=== PATIENT | male | born 1980 | race Caucasian/White ===

== ENCOUNTER 2020-07-19 14:53 | Emergency (ER) | payer SELFPAY ==
[2020-07-19 15:05] VITALS: BP 134/85; PULSE 84; RESP 18; TEMP 36.2; O2SAT 100; BMI 22.4
--- NOTE | 2020-07-19 16:36 | W.ED.GENADLT ---
HPI - General Adult General: Chief complaint: General Medical Stated complaint: opiod withdrawl Time Seen by Provider: 07/19/20 16:29 Source: patient Mode of arrival: ambulatory Limitations: no limitations History of Present Illness: HPI narrative: 39-year-old male states he uses Percocets and states he gets some on the streets and family this morning. He is want to stop taking them and is scared he may go into withdrawals. He has no withdrawal symptoms here but states he does feel anxious. He has had no vomiting. He has no suicidal or homicidal ideations. Associated symptoms: Deny chest pain, dyspnea, headache(s), nausea, rash or vomiting Review of Systems Const: Denies: fever(s), chills, body aches or change in appetite Eyes: Denies: blurry vision or eye discomfort ENMT: Denies: throat pain or dental pain Card: Denies: chest pain Resp: Denies: dyspnea GI: Denies: abdominal pain, nausea, vomiting or diarrhea : Denies: dysuria Musc: Denies: neck pain or back pain Skin/Breast: Denies: rash Neuro: Denies: headache(s) Psych: Denies: depression Tyrone/Lymph: Denies: easy bruising All/Imm: Denies: urticaria Physical Exam Const: COMMON NORMALS: no acute distress, patient oriented x3 and healthy appearing HENMT: COMMON NORMALS: normocephalic and atraumatic HEAD & SCALP: normocephalic and atraumatic Eye: COMMON NORMALS: Equal, round and reactive pupils present and EOMs intact bilaterally PUPIL: Yes Equal, round and reactive pupils present Neck/C-Spine: COMMON NORMALS: full ROM and supple Chest: COMMONS NORMALS: normal inspection of the chest and normal palpation of entire chest wall Resp: COMMON NORMALS: normal respiratory effort, No retractions, No use of accessory muscles and clear to auscultation bilaterally AUSCULTATION: clear to auscultation bilaterally Cardio: COMMON NORMALS: regular rate, regular rhythm and No murmurs present (Cardio) RATE: regular rate RHYTHM: regular rhythm GI: COMMON NORMALS: Normal to inspection, nondistended, normoactive bowel sounds present, Soft to palpation, non-tender and no masses PALPATION: Yes Soft to palpation Extremity: COMMON NORMALS: normal to inspection and full ROM Neuro: COMMON NORMALS: patient oriented x3, moves all extremities and no focal motor deficits Psych: COMMON NORMALS: mental status grossly normal, Normal thought process present and cooperative THOUGHT PROCESS: Normal thought process present Skin: COMMON NORMALS: no rashes or lesions noted and no wounds GENERAL SKIN EXAM: no rashes or lesions noted Course Vital Signs: Vital signs: Vital Signs Temperature 97.2 F L 07/19/20 15:05 Pulse Rate 84 07/19/20 15:05 Respiratory Rate 18 07/19/20 15:05 Blood Pressure 134/85 07/19/20 15:05 Pulse Oximetry 100 07/19/20 15:05 MDM - General Adult MDM Narrative: Medical decision making narrative: Patient presents here with opioid dependence. He has no withdrawal symptoms here and is stable for discharge. Will prescribe a few clonidine he is to follow-up with outpatient management and will have case management help and try to find a rehab center as well. He is not suicidal or homicidal. Discharge Plan Discharge Patient Disposition: Home Clinical Impression: Opioid dependence Qualifiers: Substance use status: with unspecified opioid-induced disorder Qualified Code(s): F11.29 - Opioid dependence with unspecified opioid-induced disorder Condition: Stable Prescriptions: New clonidine HCl 0.1 mg tablet 0.1 mg PO Q12H PRN (Reason: withdrawal symptoms) Qty: 10 RF: 0 Discharge Orders: Discharge Order (Routine); Ordered 07/19/20 Ordered By: Celestino Cedillo Discharge Diet: Advance as tolerated Discharge Activity: Resume usual activity Patient Instructions: Opioid Withdrawal (ED) Coding Level of Care Code ED [employer] Supervisor for Anh Castro
[2020-07-19 17:12] VITALS: BP 135/87; PULSE 69; RESP 16; O2SAT 98
--- NOTE | 2020-07-20 10:14 | DCPLANNER ---
food manager had message to speak with patient about out patient rehab centers. food manager called patient, unable to speak with patient at this time, unable to leave voicemail for patient.
== END 2020-07-19 17:13 | disposition home or self-care (01) ==
PROVIDERS: Emergency Provider Emergency Medicine
DX: F11.29 Opioid dependence with unspecified opioid-induced disorder (principal)
CPT/HCPCS: 12345; 99282